=== PATIENT | female | born 1935 | race Two or more races ===

== ENCOUNTER 2016-05-15 09:55 | Inpatient (IN) | payer MEDICAID ==
[~2016-05-15] VITALS: Ht 142.2 cm; Wt 72.6 kg
[~2016-05-15 09:55] MED LIST: FUROSEMIDE40 MG ORAL
[2016-05-15] MEDS ORDERED: Ketorolac 30mg Inj IV ONE (10:15)
[2016-05-15] MEDS ORDERED: Morphine Sulfate 2mg/ml Inj IVP ONE (10:15)
[2016-05-15 10:47] VITALS: BP 120/55
[2016-05-15] MEDS ORDERED: ZOCOR20 M1 ORAL (11:04)
[2016-05-15] MEDS ORDERED: LASIX20 M1 ORAL (11:04)
[2016-05-15] MEDS ORDERED: AMBIEN10 M1 ORAL (11:04)
[2016-05-15] MEDS ORDERED: FOSAMAX70 MG ORAL (11:06)
[2016-05-15] MEDS ORDERED: CALCIUM + D3 E1 EACH PO (11:06)
[2016-05-15] MEDS ORDERED: AMLODIPINE BESY10 MG ORAL (11:06)
[2016-05-15 11:26] LABS: BASOPHILS % (AUTO) 1.3 % (0.0-2.0); EOSINOPHILS % (AUTO) 1.5 % (0.0-3.0); LYMPHOCYTES % (AUTO) 33.1 % (20.0-45.0); MEAN CORPUSCULAR HEMOGLOBIN 29.4 PG (27.0-31.0); MEAN CORPUSCULAR HGB CONC 33.4 G/DL (32.0-36.0); MEAN CORPUSCULAR VOLUME 88 FL (80-99); MEAN PLATELET VOLUME 8.9 FL (6.5-10.1); MONOCYTES % (AUTO) 10.9 % (1.0-10.0); NEUTROPHILS % (AUTO) 53.2 % (45.0-75.0); PLATELET COUNT 173 K/UL (150-450); RED BLOOD COUNT 4.41 M/UL (4.20-5.40); RED CELL DISTRIBUTION WIDTH 11.7 % (11.6-14.8); WHITE BLOOD COUNT 6.4 K/UL (4.8-10.8)
[2016-05-15 11:32] LABS: PROTHROMBIN TIME 10.1 SEC (9.30-11.50)
--- NOTE | 2016-05-15 11:43 | Diagnostic Imaging Report ---
Indication: SOB Technique: One view of the chest Comparison: none Findings: No acute infiltrates, effusions, or congestion. Tortuous calcified aorta. Normal heart size. Upper mediastinum unremarkable. There is. Mild thoracic scoliotic deformity and degenerative spondylosis Impression: No acute process.
[2016-05-15 12:00] VITALS: BP 112/55
[2016-05-15 13:09] VITALS: BP 132/57
[2016-05-15 13:26] LABS: ALANINE AMINOTRANSFERASE 13 U/L (3-33); ALBUMIN/GLOBULIN RATIO 1.4 (1.0-2.7); ANION GAP 14 (5-15); ASPARTATE AMINO TRANSFERASE 35 U/L (5-40); CALCIUM 9.9 mg/dL (8.6-10.2); CARBON DIOXIDE 29 mEQ/L (20-30); CHLORIDE 97 mEQ/L (98-107); CREATININE 0.7 mg/dL (0.5-0.9); HEMOLYSIS 5; POTASSIUM 3.7 mEQ/L (3.4-4.9); SODIUM 140 mEQ/L (135-145); TOTAL PROTEIN 7.8 g/dL (6.6-8.7); TROPONIN I < 0.30 ng/mL (<=0.30)
[2016-05-15 13:37] LABS: CKMB 1.6 ng/mL (< 3.8)
[2016-05-15] MEDS ORDERED: Zolpidem 5mg tab ORAL PRN ×3 (15:45→21:00)
[2016-05-15 15:59] VITALS: BP 139/62
--- NOTE | 2016-05-15 18:32 | General Progress Note ---
Assessment/Plan Status: stable Assessment/Plan 1. bilateral knee OA - will start ultram 50 mg q 12 hrs prn for pain. Pt will be in observation over night for pain management. Will have patient f/u with ortho at [facility] for possible knee replacement. 2. HTN - cont home meds. 3. Hyperlipidemia - cont simvastatin 20 mg one po qhs. 4. Insomnia - cont Ambien 5 mg one po qhs. 5. Edema - cont lasix 20 mg one po x one tonight and then PRN. Subjective Date patient seen: May 15, 2016 Time patient seen: 17:45 Constitutional: Reports: no symptoms HEENT: Reports: no symptoms Cardiovascular: Reports: no symptoms Respiratory: Reports: no symptoms Gastrointestinal/Abdominal: Reports: no symptoms Genitourinary: Reports: no symptoms Neurologic/Psychiatric: Reports: no symptoms Endocrine: Reports: no symptoms Hematologic/Lymphatic: Reports: no symptoms Allergies: Coded Allergies: NO KNOWN ALLERGIES (Unverified Allergy, Unknown, 11/14/14) Subjective Pt c/o bilateral knee pain with RT knee worse than LT knee. She was brought in for observation over night for better pain management. She has had long hx of bilateral knee osteoarthritis. Objective Last 24 Hour Vital Signs Date Time Temp Pulse Resp B/P Pulse Ox O2 Delivery O2 Flow Rate FiO2 05/15/16 16:45 98.3 79 14 139/62 98 Room Air 05/15/16 15:59 98.3 79 14 139/62 98 Room Air 05/15/16 13:09 98.0 75 18 132/57 98 Room Air 05/15/16 13:08 98.1 05/15/16 13:08 98.1 05/15/16 12:00 98.1 73 18 112/55 100 Room Air 05/15/16 10:47 98.1 73 17 120/55 100 Room Air 05/15/16 10:16 98.1 72 16 121/63 99 Room Air Laboratory Tests 05/15/16 11:05: White Blood Count 6.4, Red Blood Count 4.41, Hemoglobin 12.9, Hematocrit 38.8, Mean Corpuscular Volume 88, Mean Corpuscular Hemoglobin 29.4, Mean Corpuscular Hemoglobin Concent 33.4, Red Cell Distribution Width 11.7, Platelet Count 173, Mean Platelet Volume 8.9, Neutrophils (%) (Auto) 53.2, Lymphocytes (%) (Auto) 33.1, Monocytes (%) (Auto) 10.9H, Eosinophils (%) (Auto) 1.5, Basophils (%) ( Auto) 1.3, Prothrombin Time 10.1, Prothromb Time International Ratio 1.0, Activated Partial Thromboplast Time 25 05/15/16 12:55: Sodium Level 140, Potassium Level 3.7, Chloride Level 97L, Carbon Dioxide Level 29, Anion Gap 14, Blood Urea Nitrogen 16, Creatinine 0.7, Estimat Glomerular Filtration Rate , Glucose Level 132H, Calcium Level 9.9, Total Bilirubin < 0.2, Aspartate Amino Transf (AST/SGOT) 35, Alanine Aminotransferase (ALT/SGPT) 13, Alkaline Phosphatase 42, Total Creatine Kinase 59, Creatine Kinase MB 1.6, Creatine Kinase MB Relative Index 2.7, Troponin I < 0.30, Pro-B-Type Natriuretic Peptide 205, Total Protein 7.8, Albumin 4.6, Globulin 3.2, Albumin/ Globulin Ratio 1.4 Height (Feet): 4 Height (Inches): 8.00 Weight (Pounds): 160 General Appearance: no apparent distress, alert EENT: normal ENT inspection Neck: non-tender, normal alignment, supple Cardiovascular: normal rate, regular rhythm Respiratory/Chest: chest wall non-tender, lungs clear, normal breath sounds Abdomen: normal bowel sounds, non tender, soft Extremities: other - bilateral knee tenderness with swelling Edema: no edema noted Arm (L), no edema noted Arm (R), 1+ Leg (L), 1+ Leg (R), no edema noted Pedal (L), no edema noted Pedal (R), no edema noted Generalized Neurologic: alert, oriented x 3, responsive Skin: warm/dry Lymphatic: normal anterior cervical (L), normal anterior cervical (R), normal axillary (L), normal axillary (R), normal inguinal (L), normal inguinal (R), normal other, normal posterior cervical (L), normal posterior cervical (R), normal submandibular (L), normal submandibular (R), normal supraclavicular (L), normal supraclavicular (R) JORDAN TRMIBLE May 15, 2016 18:32
[2016-05-15 20:13] VITALS: BP 115/55
[2016-05-15] MEDS: traMADol 50mg tab ORAL PRN (21:37)
--- NOTE | 2016-05-15 23:18 | History and Physical Report ---
DATE OF ADMISSION: 05/15/2016 CHIEF COMPLAINT: Severe bilateral knee pain. HOSPITAL COURSE: This is an 81-year-old Polish female, who was brought in with a family friend for complaint of bilateral knee pain that has progressively increased in the last few months. The patient has had severe osteoarthritis of both knee and has been trying to see orthopedic for possible knee replacement. The patient received morphine and Ultram in the emergency room for pain. The patient will be brought in for observation for overnight and will be discharged home and will have the patient follow up in the [facility] to see orthopedic for possible knee replacement. PAST MEDICAL HISTORY: Includes history of hypertension, hyperlipidemia, osteoporosis, severe osteoarthritis of both knees, insomnia and obesity. PAST SURGICAL HISTORY: None. HOME MEDICATION: Alendronate 70 mg once weekly, Norvasc 10 mg daily, Ambien 10 mg q.h.s., Lasix 20 mg daily o.r.n., and simvastatin 20 mg q.h.s. FAMILY HISTORY: Noncontributory. SOCIAL HISTORY: The patient lives with his son at home. No history of smoking. No history of alcohol abuse or drug abuse. PHYSICAL EXAMINATION: VITAL SIGNS: Temperature 98.1 degrees, pulse 72, respirations 16, blood pressure 121/63, and pulse oximetry is 99%. GENERAL: The patient is in no acute distress. HEENT: Normocephalic and normochromic. Extraocular muscles intact. Throat is clear. LUNGS: Clear to auscultation bilaterally. CARDIOVASCULAR: Regular rate and rhythm. No murmur. No gallop. ABDOMEN: Soft, nontender, and nondistended. Positive bowel sounds. Positive central obesity. EXTREMITIES: Positive for bilateral knee tenderness right more than left with +1 pedal edema. NEUROLOGIC: No gross motor or sensory deficits. Responds to commands. Cranial nerves II through XII were intact. LABORATORY AND DIAGNOSTIC DATA: Includes WBC 6.4, hemoglobin 12.9, hematocrit 38.8, platelets 173, neutrophils 63, lymphocytes 33, monocytes 10, and eosinophils 1.5. Sodium 140, potassium 3.7, chloride 97, bicarbonate 29, BUN 16, creatinine 0.7, and glucose 132. Calcium is 9.1. AST 13, ALT 35, and alkaline phosphatase 42. Total creatine kinase is 59. Troponin is less than 0.3. BNP is 205. Albumin is 4.6. Chest x-ray was negative for any acute changes. IMPRESSION: 1. Intractable bilateral knee pain secondary to osteoarthritis. We will start the patient on tramadol 50 mg q.12 hours and will have the patient brought in for observation overnight. 2. Hypertension. We will continue home medications and blood pressure is well controlled. 3. Hyperlipidemia. We will restart the patient on simvastatin 20 mg at bedtime. 4. Osteoporosis. We will restart Fosamax 70 mg once a week. 5. Insomnia. We will restart the patient on Ambien 10 mg at bedtime. She will be brought in for observation only and we will re-evaluate the patient in the morning. The patient states a desire to go home in the morning as well at this point. Joan Velarde M.D. DR: ULISES JOB#: [id number] CC: CAMPOS
[2016-05-16 00:39] VITALS: BP 118/56
[2016-05-16 04:00] VITALS: BP 123/61
[2016-05-16 05:03] LABS: APPEARANCE,URINE CLEAR; KETONES,URINE NEGATIVE (NEGATIVE); LEUKOCYTE ESTERASE ,URINE 3+ (NEGATIVE); NITRITE,URINE NEGATIVE (NEGATIVE); PH,URINE 7 (4.5-8.0); PROTEIN,URINE NEGATIVE (NEGATIVE); UROBILINOGEN,URINE NORMAL MG/DL (0.0-1.0)
[2016-05-16 05:32] LABS: BACTERIA,URINE FEW /HPF; RBC,URINE 0-2 /HPF (0 - 2); SQUAMOUS EPITHELIAL CELL,UR FEW /LPF (NONE/OCC); WBC,URINE 60-80 /HPF (0 - 2)
--- NOTE | 2016-05-16 06:47 | Emergency Room Report ---
History of Present Illness General Chief Complaint: General Complaint Source: Patient Present Illness HPI Patient presents with complaints of general weakness Reports that she's having more and more difficulty ambulating Patient complains of bilateral knee pain Also pain and weakness to both of her feet Patient mentioned that she felt increasingly short of breath with exertion Denies any chest pain denies any back or flank pain Patient reports the pain has been worsening over the past 2-3 months Denies any fall or trauma Allergies: Coded Allergies: NO KNOWN ALLERGIES (Unverified Allergy, Unknown, 11/14/14) Patient History Past Medical History: see triage record Pertinent Family History: none Reviewed Nursing Documentation: PMH: Agreed, PSxH: Agreed Nursing Documentation-PMH Past Medical History: No History, Except For Hx Cancer: No Hx Gastrointestinal Problems: No Hx Neurological Problems: No Review of Systems All Other Systems: negative except mentioned in HPI Physical Exam Vital Signs Date Time Temp Pulse Resp B/P Pulse Ox O2 Delivery O2 Flow Rate FiO2 05/15/16 10:16 98.1 72 16 121/63 99 Room Air Sp02 EP Interpretation: reviewed, normal General Appearance: mild distress - In acute pain Head: normocephalic, atraumatic Eyes: bilateral eye EOMI, bilateral eye PERRL ENT: hearing grossly normal, normal pharynx, TMs + canals normal, uvula midline Neck: full range of motion, supple, no meningismus, no bony tend Respiratory: lungs clear, normal breath sounds, no rhonchi, no respiratory distress, no retraction, no accessory muscle use Cardiovascular #1: normal peripheral pulses, regular rate, rhythm, no gallop, no JVD, no murmur Gastrointestinal: normal bowel sounds, non tender, soft, no mass, no organomegaly, non-distended, no guarding, no hernia, no pulsatile mass, no rebound Genitourinary: no CVA tenderness Musculoskeletal: other - Severe arthritic changes to bilateral knee Neurologic: oriented x3, responsive, sensory intact Psychiatric: mood/affect normal Skin: warm/dry, other - Dependent edema bilaterally Lymphatic: no adenopathy Medical Decision Making Diagnostic Impression: Primary Impression: leg pain Additional Impressions: Weakness Unable to ambulate ER Course Patient is a fairly complex patient with multiple differential to consideration including but not limited to cardiac cardiopulmonary and vascular emergencies Patient is showing obvious signs of CHF Given the general weakness the increased pain difficulty in relating Patient was placed into admission for further care Labs Test 05/15/16 11:05 05/15/16 12:55 05/16/16 04:15 White Blood Count 6.4 K/UL (4.8-10.8) Red Blood Count 4.41 M/UL (4.20-5.40) Hemoglobin 12.9 G/DL (12.0-16.0) Hematocrit 38.8 % (37.0-47.0) Mean Corpuscular Volume 88 FL (80-99) Mean Corpuscular Hemoglobin 29.4 PG (27.0-31.0) Mean Corpuscular Hemoglobin Concent 33.4 G/DL (32.0-36.0) Red Cell Distribution Width 11.7 % (11.6-14.8) Platelet Count 173 K/UL (150-450) Mean Platelet Volume 8.9 FL (6.5-10.1) Neutrophils (%) (Auto) 53.2 % (45.0-75.0) Lymphocytes (%) (Auto) 33.1 % (20.0-45.0) Monocytes (%) (Auto) 10.9 % (1.0-10.0) Eosinophils (%) (Auto) 1.5 % (0.0-3.0) Basophils (%) (Auto) 1.3 % (0.0-2.0) Prothrombin Time 10.1 SEC (9.30-11.50) Prothromb Time International Ratio 1.0 (0.9-1.1) Activated Partial Thromboplast Time 25 SEC (23-33) Sodium Level 140 mEQ/L (135-145) Potassium Level 3.7 mEQ/L (3.4-4.9) Chloride Level 97 mEQ/L (98-107) Carbon Dioxide Level 29 mEQ/L (20-30) Anion Gap 14 (5-15) Blood Urea Nitrogen 16 mg/dL (7-23) Creatinine 0.7 mg/dL (0.5-0.9) Estimat Glomerular Filtration Rate mL/min (>60) Glucose Level 132 mg/dL (74-106) Calcium Level 9.9 mg/dL (8.6-10.2) Total Bilirubin < 0.2 mg/dL (0.0-1.2) Aspartate Amino Transf (AST/SGOT) 35 U/L (5-40) Alanine Aminotransferase (ALT/SGPT) 13 U/L (3-33) Alkaline Phosphatase 42 U/L (35-104) Total Creatine Kinase 59 U/L (26-140) Creatine Kinase MB 1.6 ng/mL (< 3.8) Creatine Kinase MB Relative Index 2.7 Troponin I < 0.30 ng/mL (<=0.30) Pro-B-Type Natriuretic Peptide 205 pg/mL (0-450) Total Protein 7.8 g/dL (6.6-8.7) Albumin 4.6 g/dL (3.5-5.2) Globulin 3.2 g/dL Albumin/Globulin Ratio 1.4 (1.0-2.7) Urine Color Pale yellow Urine Appearance Clear Urine pH 7 (4.5-8.0) Urine Specific [place] 1.015 (1.005-1.035) Urine Protein Negative (NEGATIVE) Urine Glucose (UA) Negative (NEGATIVE) Urine Ketones Negative (NEGATIVE) Urine Occult Blood Negative (NEGATIVE) Urine Nitrite Negative (NEGATIVE) Urine Bilirubin Negative (NEGATIVE) Urine Urobilinogen Normal MG/DL (0.0-1.0) Urine Leukocyte Esterase 3+ (NEGATIVE) Urine RBC 0-2 /HPF (0 - 2) Urine WBC 60-80 /HPF (0 - 2) Urine Squamous Epithelial Cells Few /LPF (NONE/OCC) Urine Bacteria Few /HPF (NONE) Rhythm Strip Diag. Results EP Interpretation: yes Rate: 66 Rhythm: NSR, no PVC's, no ectopy Chest X-Ray Diagnostic Results EP Interpretation: Yes Findings: no consolidation, no effusion, no pneumothorax Number of Views: 1 Last Vital Signs Date Time Temp Pulse Resp B/P Pulse Ox O2 Delivery O2 Flow Rate FiO2 05/16/16 04:00 96.6 64 18 123/61 97 Room Air Status: improved Disposition: ADMITTED INPATIENT Condition: Serious Referrals: NOT CHOSEN IPA/,REFERRING (PCP) BRIDGETT ZHANG D.O. May 16, 2016 06:47
[2016-05-16 08:00] VITALS: BP 125/60
[2016-05-16] MEDS: traMADol 50mg tab ORAL PRN (09:17)
[2016-05-16 12:00] VITALS: BP 118/60
[2016-05-16 16:00] VITALS: BP 139/61
[2016-05-16] MEDS ORDERED: 1/2 NS 1000ml IV ONE (17:29)
[2016-05-16] MEDS ORDERED: NS 275ml ONE (17:29)
[2016-05-16] MEDS ORDERED: Tubing Blood Filter IV ONE (17:29)
[2016-05-16] MEDS ORDERED: D5NS 1000ml IV ONE (17:29)
--- NOTE | 2016-05-17 13:06 | Discharge Summary ---
Discharge Summary Hospital Course Date of Admission May 15, 2016 at 10:42 Date of Discharge May 16, 2016 at 17:30 Admitting Diagnosis chf leg pain HPI Phuong Ayala is a 81 year old female who was admitted on May 15, 2016 at 10:42 for Congestive Heart Failure,Lef Pain Hospital Course This is an 81-year-old [place] female, who was brought in with a family friend for complaint of bilateral knee pain that has progressively increased in the last few months. The patient has had severe osteoarthritis of both knee and has been trying to see orthopedic for possible knee replacement. Patient was admitted for observation overnight and will be discharged home and will have the patient follow up in the [facility] to see orthopedic for possible knee replacement. He was given Tramadol prn pain Continue home medications. Restart the patient on simvastatin 20 mg at bedtime, Fosamax 70 mg once a week, and Ambien 10 mg at bedtime. He was discharged home the following day advised to follow-up with [facility] for possible knee replacement. FINAL DIAGNOSIS: 1. bilateral knee OA 2. HTN 3. Hyperlipidemia 4. Insomnia 5. Edema I have been assigned to complete a discharge summary on this account. I was not involved in the patient's management. ---Abdon Colon NP Discharge Discharge Disposition Patient was discharged to Home () Discharge Diagnoses: Olga Colon NP May 17, 2016 13:06
--- NOTE | 2016-05-17 18:37 | Cardiology Report ---
APPROVED REPORT EKG Measurement Heart [id number] Sinus rhythm with sinus arrhythmia with 1st degree AV block Left axis deviation Left bundle branch block Abnormal ECG
== END 2016-05-16 17:30 | disposition home or self-care (01) | DRG 351 ==
LOC: EMR 10:39 → 2E 10:42 → EDBEDREQ 12:00 → 4W 16:05
DX: M17.0 Bilateral primary osteoarthritis of knee (principal); I10 Essential (primary) hypertension; E78.5 Hyperlipidemia, unspecified; G47.00 Insomnia, unspecified; R60.9 Edema, unspecified; M81.0 Age-related osteoporosis without current pathological fracture; E66.9 Obesity, unspecified
CPT/HCPCS: 36415; 71010; 80053; 81003; 82550; 82553; 83880; 84484; 85025; 85610; 85730; 87086; 87181; 93005; J2405